=== PATIENT | male | born 1930 | race Caucasian/White ===

== ENCOUNTER 2017-09-24 07:08 | Inpatient (IN) | payer MEDICARE, OTHER ==
[~2017-09-24] VITALS: Ht 175.3 cm; Wt 75.6 kg
[2017-09-24] VITALS (8 sets, daily range): BP systolic 126–155; BP diastolic 44–67
--- NOTE | ~2017-09-24 | H ---
[address] [address] HISTORY AND PHYSICAL Name: KATIE DE SANTIAGO Room: [address] IN .R.#: [id number] Admission: 09/24/17 Attend Phys: Cosme Garcia MD, Discharge: 09/25/17 Date of : [birth year] Report #: [id number] THIS REPORT FOR: //name// Please refer to the History and Physical performed in the physician's office. By: [facility]0Medical Records Staff ODALYS /NAILA
[~2017-09-24 07:08] MED LIST: ADULT LOW DOSE81 MG PO; AZITHROMYCIN; BENTYL 20 MG TA20 M1 PO; CARAFATE 1 GM TA1 G1 PO; CARDURA4 MG PO; CLEOCIN HCL150 MG PO; ELIQUIS2.5 MG PO; FENOFIBRATE160 MG PO; FISH OIL 1,001000 M2 PO; FLOMAX0.4 MG PO; KETOCONAZOLE60 GM TP; LIPITOR 20 MG T20 M1 PO; LIPITOR10 MG PO; LISINOPRIL2.5 MG PO; LOPRESSOR 12.12.5 MG PO; MECLIZINE HCL25 M1 PO; MIRALAX255 GM PO; MOTION RELIEF25 MG PO; NEXIUM40 MG PO; NITROGLYCERIN0.4 MG SL; PLAVIX 75 MG TA75 MG PO; PRESERVISION A1 EACH PO; PROTONIX40 M2 PO; SIMVASTATIN40 MG PO; SOTALOL80 MG PO; TAMSULOSIN HCL0.4 M1 PO; TOBRADEX ST EYE5 ML OP; TOPROL XL25 MG PO; TRAMADOL 50 MG50 MG PO; ZOFRAN ODT4 MG PO; [UNRECOGNIZED DRUG - OTHER]
[2017-09-24] MEDS ORDERED: ACIPHEX 20 MG T20 MG PO (08:01)
[2017-09-24 08:21] LABS: HEMATOCRIT 36.9 % (42.0-52.0); HEMOGLOBIN 12.5 gm/dL (14.0-18.0); MCV 94.2 fL (80.0-100.0); MPV 8.2 fl. (7.2-11.1); RBC 3.92 mil/uL (4.50-6.00); RDW-CV 13.1 % (10.5-14.5); WBC 7.1 thou/uL (4.0-11.0)
[2017-09-24 08:26] LABS: ANION GAP 8 mmol/L (7-16); BUN 28 mg/dL (7-18); CALCIUM 9.2 mg/dL (8.5-10.1); CHLORIDE 105 mmol/L (98-107); CO2 27 mmol/L (21-32); CREATININE 1.5 mg/dL (0.6-1.3); GLUCOSE 104 mg/dL (70-99); POTASSIUM 4.3 mmol/L (3.5-5.1); SODIUM 140 mmol/L (136-145)
[2017-09-24 08:30] LABS: ALBUMIN 3.4 g/dL (3.4-5.0); ALKALINE PHOSPHATASE 50 U/L (46-116); APTT 28.3 Seconds (25.0-31.3); CHOLESTEROL 116 mg/dL (<200); HDL CHOLESTEROL 39 mg/dL (>40); INR 1.1; LDL CHOLESTEROL 60 mg/dL (<100); SGOT 30 U/L (15-37); SGPT 32 U/L (30-65); TOTAL BILIRUBIN 0.4 mg/dL (<0.1-1.0); TOTAL PROTEIN 6.5 g/dL (6.4-8.2); TRIGLYCERIDE 87 mg/dL (<150); VLDL 17 mg/dL (<40)
[2017-09-24 08:41] LABS: SERUM ASSESSMENT Clear
--- NOTE | 2017-09-24 13:09 | EKG ---
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
[2017-09-25] VITALS: BP 136/64
[2017-09-25 04:00] VITALS: BP 119/48; BP 181/91
[2017-09-25 04:31] LABS: HEMATOCRIT 32.6 % (42.0-52.0); HEMOGLOBIN 11.2 gm/dL (14.0-18.0); MCH 32.3 pg (26.0-34.0); MCHC 34.5 g/dL (28.0-37.0); MCV 93.5 fL (80.0-100.0); MPV 8.4 fl. (7.2-11.1); RBC 3.48 mil/uL (4.50-6.00); RDW-CV 12.8 % (10.5-14.5); WBC 10.8 thou/uL (4.0-11.0)
[2017-09-25 04:51] LABS: ALBUMIN 2.9 g/dL (3.4-5.0); ALKALINE PHOSPHATASE 46 U/L (46-116); ANION GAP 7 mmol/L (7-16); BUN 20 mg/dL (7-18); CALCIUM 8.6 mg/dL (8.5-10.1); CHLORIDE 109 mmol/L (98-107); CO2 25 mmol/L (21-32); CREATININE 1.3 mg/dL (0.6-1.3); GLUCOSE 98 mg/dL (70-99); POTASSIUM 4.3 mmol/L (3.5-5.1); SGOT 23 U/L (15-37); SGPT 24 U/L (30-65); SODIUM 141 mmol/L (136-145); TOTAL BILIRUBIN 0.6 mg/dL (<0.1-1.0); TOTAL PROTEIN 5.4 g/dL (6.4-8.2); TROPONIN-I LEVEL <0.06 ng/mL (<0.06)
[2017-09-25 08:00] VITALS: BP 137/52
[2017-09-25 09:09] VITALS: BP 137/52
--- NOTE | 2017-09-25 09:33 | EKG ---
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
--- NOTE | 2017-09-25 09:42 | EKG ---
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
[2017-09-25] MEDS ORDERED: BRILINTA90 MG PO (09:55)
[2017-09-25] MEDS ORDERED: ASPIR 8181 MG PO (09:55)
[2017-09-25] MEDS ORDERED: MELATONIN5 M1 PO (09:57)
--- NOTE | 2017-09-25 11:07 | CARD ---
[address] [address] CARDIAC CATH REPORT Name: KATIE DE SANTIAGO Room: [address]#: [id number] Admission: 09/24/17 Attend Phys: Cosme Garcia MD, Discharge: 09/25/17 Date of : [birth year] Report #: [id number] THIS REPORT FOR: //name// APPROVED REPORT Study performed: 09/24/2017 08:45:14 Patient Details Patient Status: Out-Patient Room #: The patient is a 87 year-old male Event Personnel Cosme Garcia Tin Can Laborer, Jeanie Clark RN Associate Agent Insurance Sales, Agustina Duran RN Associate Agent Insurance Sales, Riddhi Manzo, Letty Corona RN Monitor Procedures Performed Art Access - R femoral artery* , Left Heart CatheterizationDES Place w/wo Plasty Single LAD [id number] Hemostasis w/ Angioseal Indication Unstable angina Risk Factors Hypercholesterolemia, Hypertension Previous Procedures/Diagnoses Previous PCI Admission/Lab Medications/Medications given during procedure Aspirin, Platelet Aff. Inhib., Angiomax bolus and infusion Procedure Narrative The patient was brought electively to the Cardiac Catheterization Laboratory and was prepped and draped in a sterile manner. The right femoral was infiltrated with 1% Lidocaine subcutaneous anesthesia. A 6Fr [place] sheath was inserted into the right femoral artery. Coronary angiography was performed using coronary diagnostic catheters. The right coronary system was accessed and visualized with a 6Fr JR4 catheter. The left coronary system was accessed and visualized with a 6Fr JL4 catheter. The left ventricle was accessed and visualized with a 6Fr Straight PIG catheter. Left ventricular/Aortic Valve gradient assessed via catheter pullback. Left ventriculogram was performed in [place] [address] CARDIAC CATH REPORT Name: KATIE DE SANTIAGO Room: [address]#: [id number] Admission: 09/24/17 Attend Phys: Cosme Garcia MD, Discharge: 09/25/17 Date of : [birth year] Report #: [id number] femoral angiogram was performed . Closure device was deployed with a 6 Fr Angioseal STS 6Fr. The patient tolerated the procedure well and there were no complications associated with the procedure. There was no hematoma. Intraoperative Conscious Sedation Fentanyl 25 mcg Dose: 1948 mGy Contrast Type and Amount: Visipaque 380 ml Coronary Angiography The patient's coronary anatomy is left dominant. Diagnostic Cath Left Main 0% narrowing LAD 75-80% tubular proximal stenosis with 70% mid vessel in-stent narrowing Circumflex Dominant vessel with widely patent stents and 40% distal narrowing Right Coronary Small nondominant vessel with 40% mid vessel narrowing Left Ventriculography The left ventricle is normal in size with normal contractility. The left ventricular ejection fraction is estimated to be 60%. Left ventricular wall motion abnormalities are not present. There is no mitral insufficiency. Hemodynamics The aortic pressure is 165/66 mmHg with a mean of 104 mmHg. The left ventricular pressure is 165/2 mmHg with a mean of mmHg. The left ventricular end diastolic pressure is 20 mmHg. There was no gradient across the aortic valve upon pullback. PCI Technique Lesion Anticoagulation was achieved with Angiomax. Patient was preloaded with Angiomax IV 11.25 ml. Percutaneous coronary intervention was performed on the proximal left anterior descending artery segment. The lesion stenosis prior to intervention was 80% with ELLIE 3 flow. A 6FR LAUNCHER EBU 3.5 Guide Catheter was used to engage the ostium. A IG: ProwaterFlex 180CM Interventional Guidewire was used to cross the lesion. BALLOON DILATION A Balloon catheter Trek RX 2.5 X 15 [place] [address] CARDIAC CATH REPORT Name: KATIE DE SANTIAGO Room: [address]#: [id number] Admission: 09/24/17 Attend Phys: Cosme Garcia MD, Discharge: 09/25/17 Date of : [birth year] Report #: [id number] 12-16atm for 15seconds. STENT DEPLOYMENT A drug-eluting stent Xience Alpine RX 2.5X23 was inserted and inflated up to 14atm for 15seconds. POST STENT DEPLOYMENT BALLOON DILATION A Balloon catheter NC Trek RX 3.0 X 12 was inserted and inflated up to 15atm for 10seconds. Final angiography reveals 10 % stenosis with ELLIE 3 flow. PCI Technique Lesion 2 Percutaneous Coronary Intervention was performed on the mid LAD. The lesion stenosis prior to intervention was 70% with ELLIE flow. Balloon Dilation A Balloon catheter NC Trek RX 2.5 X 12 was inserted and inflated up to 14atm for 10seconds. Stent Deployment A drug-eluting stent Xience Alpine RX 2.5X12, 2.5x12 was inserted and inflated up to 12atm for 15seconds. Final angiography reveals 0 % stenosis with ELLIE 3 flow. Conclusion #1 significant coronary artery disease characterized by the following: A 80% proximal LAD stenosis with 70% mid LAD in-stent restenosis B dominant circumflex with widely patent stents and 40% distal narrowing C small nondominant right coronary artery with 40% mid vessel narrowing #2 normal left ventricular systolic function, estimated ejection fraction being 60% #3 modest systemic systolic hypertension with moderate elevation of left ventricular end-di[place] [address] CARDIAC CATH REPORT Name: KATIE DE SANTIAGO Room: [address]#: [id number] Admission: 09/24/17 Attend Phys: Cosme Garcia MD, Discharge: 09/25/17 Date of : [birth year] Report #: [id number] #4 successful percutaneous coronary intervention with deployment of a drug-eluting stent at the site of 80% proximal LAD stenosis with 10% residual narrowing and ELLIE-3 flow the distal vessel #5 successful percutaneous coronary intervention with deployment of sequential drug-eluting stents at the site of 70% tubular mid LAD in-stent restenosis with 0% residual narrowing and ELLIE-3 flow the distal vessel Recommendations Cardiac Risk Reduction Program Aggressive Medical Therapy Medications Administered Aspirin (any) Ticagrelor Diagnostic Cath Approved by: Cosme Garcia MD Date/Time: 09/25/2017 at 1104 <ELECTRONICALLY SIGNED> By: Cosme Garcia MD, [facility] 09/25/17 1106 1106 1106Cosme Garcia MD, FAC /INF
--- NOTE | 2017-09-25 11:28 | D ---
[address] [address] DISCHARGE SUMMARY Name: KATIE DE SANTIAGO Room: [address] IN M.R.#: [id number] Admission: 09/24/17 Attend Phys: Cosme Garcia MD, Discharge: 09/25/17 Date of : [birth year] Report #: [id number] THIS REPORT FOR: //name// CC: DR ZHAO Pate DATE OF SERVICE: 09/25/2017 FINAL DISCHARGE DIAGNOSES: 1. Unstable angina. 2. Coronary artery disease. 3. Status post percutaneous coronary intervention to the left anterior descending. 4. Status post remote percutaneous coronary intervention of the circumflex and left anterior descending. 5. Paroxysmal atrial fibrillation. 6. Hyperlipidemia. 7. Gastroesophageal reflux disease. PROCEDURES: 09/24/2017 -- left heart catheterization, selective coronary arteriography and percutaneous coronary intervention with deployment of two drug-eluting stents at the site of 75-80% tubular proximal LAD stenosis. The patient is a very pleasant 87-year-old male with coronary artery disease, 6 years status post stenting of the mid to distal LAD and multiple sites of the dominant circumflex. He presented to Dr. Diaz with increasing episodes of chest discomfort, strongly suggestive of angina following an unstable course. In this context and with the risk factors of hyperlipidemia, I performed cardiac catheterization on 09/24/2017, which revealed 75-80% tubular proximal LAD stenosis with widely patent mid to distal LAD stents and widely patent circumflex stents. I deployed 2 drug-eluting stents in the proximal LAD with 10% residual narrowing and ELLIE 3 flow of the distal vessel. The patient did well post-procedurally with good hemostasis at the right femoral site of catheterization. Laboratory on 09/25 revealed a sodium of 141, potassium of 4.3, BUN 20, creatinine 1.3. Hemoglobin 11.2, white blood cell count 10,800, with 224,000 platelets. Troponin less than 0.06. Cholesterol 116, triglycerides 87, HDL 30 and LDL 60 mg percent. The patient ambulated without difficulty. There was good hemostasis at the right femoral site of catheterization. He was discharged to home in stable condition on the following medications: Aspirin 81 mg daily, atorvastatin 20 mg daily, doxazosin 4 mg daily, fenofibrate 160 mg daily, AcipHex 20 mg daily, sotalol 80 mg b.i.d.. Ticagrelor or Brilinta 90 mg b.i.d., with 180 [place] [address] DISCHARGE SUMMARY Name: DE SANTIAGOKATIE Bernadette Room: [address]#: [id number] Admission: 09/24/17 Attend Phys: Cosme Garcia MD, Discharge: 09/25/17 Date of : [birth year] Report #: [id number] dose and previously utilized apixaban to be held temporarily during the rest of the confluence of Brilinta, aspirin, apixaban. The patient is scheduled to return to see our nurse practitioner, Eloisa Torrez, on 09/29/[address] Diaz on 11/11/2017. Thus, the patient is discharged to home in stable condition on the aforementioned medications with followup as iterated above. <ELECTRONICALLY SIGNED> By: Cosme Garcia MD, [facility] 09/25/17 1128 0925 1012Jokey Garcia MD, [facility] /nt
== END 2017-09-25 10:30 | disposition home or self-care (01) | DRG 246 ==
LOC: M.CL 07:08 → M.TBA-CV 11:23 → M.2W 15:10
PROVIDERS: ADMIT Internal Medicine
PROC: B211YZZ Fluoroscopy of Multiple Coronary Arteries using Other Contrast (ICD-10-PCS; principal; 2017-09-25)
PROC: 027035Z Dilation of Coronary Artery, One Artery with Two Drug-eluting Intraluminal Devices, Percutaneous Approach (ICD-10-PCS; principal; 2017-09-25)
PROC: 4A023N7 Measurement of Cardiac Sampling and Pressure, Left Heart, Percutaneous Approach (ICD-10-PCS; principal; 2017-09-25)
PROC: B215YZZ Fluoroscopy of Left Heart using Other Contrast (ICD-10-PCS; principal; 2017-09-25)
DX: T82.855A Stenosis of coronary artery stent, initial encounter (principal); I50.33 Acute on chronic diastolic (congestive) heart failure; I25.110 Atherosclerotic heart disease of native coronary artery with unstable angina pectoris; I48.92 Unspecified atrial flutter; I48.0 Paroxysmal atrial fibrillation; E78.2 Mixed hyperlipidemia; I95.1 Orthostatic hypotension; E78.5 Hyperlipidemia, unspecified; K21.9 Gastro-esophageal reflux disease without esophagitis; Z88.0 Allergy status to penicillin; Z88.2 Allergy status to sulfonamides; Z88.8 Allergy status to other drugs, medicaments and biological substances

== ENCOUNTER 2017-09-30 17:26 | Emergency (ER) | payer MEDICARE, OTHER ==
[~2017-09-30] VITALS: Ht 175.3 cm; Wt 71.7 kg
[~2017-09-30 17:26] MED LIST changes: +ACIPHEX 20 MG T20 MG PO; +ASPIR 8181 MG PO; +BRILINTA90 MG PO; +MELATONIN5 M1 PO
[2017-09-30 17:30] VITALS: BP 128/71
[2017-09-30] MEDS ORDERED: EFFIENT10 MG PO (18:54)
[2017-09-30] MEDS ORDERED: PEPCID20 MG PO (19:05)
== END 2017-09-30 19:15 | disposition home or self-care (01) ==
LOC: M.ERS 17:26
DX: R21 Rash and other nonspecific skin eruption (principal); T50.995A Adverse effect of other drugs, medicaments and biological substances, initial encounter; Y92.9 Unspecified place or not applicable; E78.5 Hyperlipidemia, unspecified; Z88.0 Allergy status to penicillin; Z88.1 Allergy status to other antibiotic agents; Z88.2 Allergy status to sulfonamides

== ENCOUNTER → 2018-05-03 | Outpatient (CLI) | payer MEDICARE, OTHER ==
[~2018-05-03] MED LIST changes: +EFFIENT10 MG PO; +PEPCID20 MG PO
== END ==
LOC: M.LAB 11:53
DX: R41.3 Other amnesia (principal); R53.83 Other fatigue; Z98.61 Coronary angioplasty status

== ENCOUNTER 2018-05-08 20:22 | Inpatient (IN) | payer MEDICARE, OTHER ==
[~2018-05-08] VITALS: Ht 172.7 cm; Wt 69.4 kg
[2018-05-08 20:35] VITALS: BP 178/71
[2018-05-08] MEDS ORDERED: OMEPRAZOLE20 M1 (20:55)
[2018-05-08 21:21] LABS: URINE BILIRUBIN NEGATIVE (Negative); URINE BLOOD NEGATIVE (Negative); URINE CLARITY CLEAR; URINE COLOR YELLOW; URINE GLUCOSE-RANDOM NEGATIVE (Negative); URINE KETONES NEGATIVE (Negative); URINE LEUKOCYTES-REFLEX NEGATIVE (Negative); URINE NITRITE-REFLEX NEGATIVE (Negative); URINE PROTEIN NEGATIVE (Negative); URINE SPECIFIC GRAVITY 1.015 (1.005-1.030); URINE UROBILINOGEN 0.2 E.U./dl (0.2-1.0)
[2018-05-08 21:21] LABS: ABSOLUTE EOSINOPHILS 0.1 thou/uL (0.0-0.7); ABSOLUTE LYMPHOCYTES 1.7 thou/uL (0.8-5.3); ABSOLUTE MONOCYTES 0.8 thou/uL (0.0-1.2); ABSOLUTE NEUTROPHILS 5.3 thou/uL (1.6-8.1); BASOPHILS 0.6 %; EOSINOPHILS 1.8 %; HEMATOCRIT 36.5 % (42.0-52.0); HEMOGLOBIN 12.5 gm/dL (14.0-18.0); LYMPHOCYTES 21.1 %; MCH 32.1 pg (26.0-34.0); MCHC 34.4 g/dL (28.0-37.0); MCV 93.4 fL (80.0-100.0); MONOCYTES 10.3 %; MPV 7.9 fl. (7.2-11.1); NUCLEATED RBCS 0 /100WBC; PLATELET COUNT* 257 thou/uL (150-400); POLYS 66.2 %; RDW-CV 12.7 % (10.5-14.5)
[2018-05-08 21:30] LABS: APTT 28.2 Seconds (25.0-31.3); INR 1.1; PROTIME 10.9 Seconds (9.20-11.50)
[2018-05-08 21:34] LABS: ANION GAP 6 mmol/L (7-16); BUN 27 mg/dL (7-18); CALCIUM 9.3 mg/dL (8.5-10.1); CHLORIDE 104 mmol/L (98-107); CO2 28 mmol/L (21-32); CREATININE 1.5 mg/dL (0.6-1.3); GLUCOSE 107 mg/dL (70-99); POTASSIUM 4.5 mmol/L (3.5-5.1); SODIUM 138 mmol/L (136-145)
[2018-05-08 21:39] LABS: ALBUMIN 3.5 g/dL (3.4-5.0); ALKALINE PHOSPHATASE 58 U/L (46-116); LIPASE 220 U/L (73-393); NT-PRO BRAIN NAT PEPTIDE 314 pg/mL (<300); SGOT 31 U/L (15-37); SGPT 27 U/L (30-65); TOTAL BILIRUBIN 0.4 mg/dL (<0.1-1.0); TROPONIN-I LEVEL <0.06 ng/mL (<0.06)
[2018-05-08 23:29] VITALS: BP 147/82
--- NOTE | 2018-05-09 03:12 | NUR ---
RECEIVED REPORT AND ASSUMED CARE AT 0010, PT TRANSPORTED FROM ED TO ROOM 230. VSS. CARDIAC MONITORING IN PLACE. ASSESSMENT COMPLETED CHARTED. PT ORIENTATED TO ROOM, CALL LIGHT, FALL POLICY.DISCUSSED PLAN OF CARE WITH PT, VERBALIZED UNDERSTANDING. ADMISSION COMPLETED BY NURSING. PT UP SBA TO BATHROOM, ON RA. BED LOCKED IN LOWEST POSITION, CALL LIGHT WITHIN REACH, BED ALARM ON. WILL CONTINUE TO MONITOR
[2018-05-09 04:00] VITALS: BP 117/56
--- NOTE | 2018-05-09 07:15 | NUR ---
CHANGE OF SHIFT BEDSIDE REPORT GIVEN PATIENT SEEN AT BEDSIDE, IN BED RESTING ASSUMED PATIENT CARE
[2018-05-09 08:00] VITALS: BP 116/61
[2018-05-09 12:00] VITALS: BP 136/60
--- NOTE | 2018-05-09 12:54 | NUR ---
MET WITH PT, AND SON/KIMBERLY TO DISCUSS HOME SITUATION/DC PLANNING. PT LIVES WITH . HE IS NORMALLY INDEPENDENT AND ACTIVE. USES NO EQUIPMENT AND HASN'T HAD HH. 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 STATED PT WAS ABLE TO CALL HER FOR HELP BUT NOW IS HAVING SOME PERIODS OF 'FORGETFULNESS.' PLAN IS FOR PT TO RETURN HOME AT DC. WILL FOLLOW
--- NOTE | 2018-05-09 15:37 | EKG ---
[place] [address] ELECTROCARDIOGRAM REPORT Name: KATIE DE SANTIAGO Room: [address] ADM IN M.R.#: [id number] Admission: 05/08/18 Attend Phys: Abel Ortiz MD Discharge: Date of : [birth year] Report #: [id number] THIS REPORT FOR: //name// [facility] ED Test Date: 2018-05-08 Test Time: 20:35:13 Pat Name: KATIE DE SANTIAGO Department: Room: [facility] Gender: M Interventional Physiatrist: AP : 1930 Requested By: Rosemary Story Order Number: [id number] MD: Nacho Clement Measurements Intervals [place] Rate: 61 P: 53 [place]: 149 QRS: 28 QRSD: 96 T: 41 QT: 428 QTc: 431 Interpretive Statements Sinus rhythm Compared to ECG 09/25/2017 07:45:49 No significant changes Electronically Signed On 05-09-2018 15:37:46 ELECTRONIC WARFARE LINGUIST by Nacho Clement [email or web address] <ELECTRONICALLY SIGNED> By: Nacho Clement MD, [facility] 05/09/18 1537 34 34 Nacho Clement MD, FACC /EPI
--- NOTE | 2018-05-09 15:52 | EKG ---
[place] [address] ELECTROCARDIOGRAM REPORT Name: KATIE DE SANTIAGO Room: [address] ADM IN M.R.#: [id number] Admission: 05/08/18 Attend Phys: Abel Ortiz MD Discharge: Date of : [birth year] Report #: [id number] THIS REPORT FOR: //name// [facility] Test Date: 2018-05-09 Test Time: 12:28:46 Pat Name: KATIE DE SANTIAGO Department: Room: [address] Gender: M Physical Therapist Clinic Director: : 1930 Requested By: Bo Tse Order Number: [id number] Xiao MD: Nacho Clement Measurements Intervals [place] Rate: 60 P: 54 GA: 171 QRS: 22 QRSD: 93 T: 42 QT: 446 QTc: 446 Interpretive Statements Sinus rhythm Compared to ECG 09/25/2017 07:45:49 No significant changes Electronically Signed On 05-09-2018 15:52:24 STERILE SUPPLY TECHNICIAN by Nacho Clement [email or web address] <ELECTRONICALLY SIGNED> By: Nacho Clement MD, [facility] 05/09/18 1552 1228 1228 Nacho lCement MD, FACC /EPI
[2018-05-09 16:17] VITALS: BP 115/63
[2018-05-09 19:50] VITALS: BP 118/56
--- NOTE | 2018-05-09 22:55 | NUR ---
RECEIVED REPORT AND ASSUMED CARE AT 1900. VSS. CARDIAC MONITORING I PLACE. NO COMPLAINTS OF PAIN. ASSESSMENT COMPLETED CHARTED. DISCUSSED PLAN OF CARE WITH PT AND . VRBALIZED UNDERSTANDING. MEDICATION ADMIN PER EMAR. PT UP WITH ASSIST WITH WALKER TO BATHROOM. RA. BED LOCKED IN LOWEST POSITION, CALL LIGHT WITHIN REACH, BED ALARM ON . WILL CONTINUE TO MONITOR FOR REMAINDER OF THE SHIFT
[2018-05-10] VITALS: BP 115/55
[2018-05-10 04:00] VITALS: BP 121/52
--- NOTE | 2018-05-10 07:25 | NUR ---
CHANGE OF SHIFT, BEDSIDE REPORT GIVEN PATIENT SEEN AT BEDSIDE, IN BED ASLEEP ASSUMED PATIENT CARE
[2018-05-10 08:00] VITALS: BP 111/59
[2018-05-10 11:23] VITALS: BP 113/54
--- NOTE | 2018-05-10 14:42 | CON ---
[address] [address] CONSULTATION Name: KATIE DE SANTIAGO Room: [address] IN M.R.#: [id number] Admission: 05/08/18 Attend Phys: Abel Ortiz MD Discharge: Date of : [birth year] Report #: [id number] THIS REPORT FOR: //name// CC: Abel Pate INDICATION: Chest pain and fall. HISTORY OF PRESENT ILLNESS: The patient is a very pleasant gentleman well known to myself. He has a history of coronary artery disease with percutaneous coronary intervention to the circumflex and LAD in 2011. In 2018, he had a drug-eluting stent placed to the LAD. By noninvasive studies, he has normal left ventricular systolic function. The patient was in his usual state of health yesterday, working in his barn when he tripped and fell striking his forehead. Since that time, he has had rather significant neck pain. CT of the C-spine showed no evidence of fracture or dislocation. CT of the head showed no acute abnormality. He has some midsternal chest discomfort which he describes as being worse if he does not eat. He was n.p.o. for most of the day today. The pain is resolved with eating. His troponins are unremarkable. His EKG shows no acute ST or T-wave abnormalities. He is without other complaint at this time from a cardiac standpoint. PAST MEDICAL HISTORY: 1. Coronary artery disease with percutaneous coronary intervention as outlined above in 2012 and 2018. 2. GERD. 3. Dyslipidemia. 4. Paroxysmal atrial fibrillation/flutter. 5. Benign prostatic hypertrophy. FAMILY HISTORY: Noncontributory. SOCIAL HISTORY: The patient is a lifelong nonsmoker. He does not drink alcohol. 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 He is and lives with his . ALLERGIES: PENICILLIN. HOME MEDICATIONS: Atorvastatin 20 mg daily, Cardura 4 mg daily, fenofibrate 160 mg daily, omeprazole 20 mg daily, Effient 10 mg daily, sotalol 80 mg b.i.d. PHYSICAL EXAMINATION: VITAL SIGNS: Stable. Blood pressure 115/63, pulse 67 and regular. GENERAL: This is a pleasant elderly gentleman whose only distress is of ongoing neck pain. He denies ongoing chest pain. He is not having shortness of breath. HEENT: Head is normocephalic, atraumatic. There is slight bruising on his forehead. Extraocular muscles intact. [place] [address] CONSULTATION Name: KATIE DE SANTIAGO Room: [address] IN ..#: [id number] Admission: 05/08/18 Attend Phys: Abel Ortiz MD Discharge: Date of : [birth year] Report #: [id number] NECK: Shows no jugular venous distention. There are no carotid bruits. CHEST: Reveals clear lung weiner without wheezes or rales. CARDIAC: Reveals a regular rhythm with normal S1 and S2. I do not appreciate gallop or murmur. ABDOMEN: Reveals normal bowel sounds. The abdomen is soft and nontender. EXTREMITIES: Shows no clubbing, cyanosis or edema. LABORATORY DATA: Reviewed. Sodium 138, potassium 4.5, chloride 104, bicarbonate 28, BUN 27, creatinine 1.5, serum glucose 107. LFTs within normal limits. Troponin less than 0.06 on 2 separate occasions. White blood cell count 8.0, hemoglobin 12.5, platelet count 257,000. IMPRESSION AND PLAN: 1. Atypical chest pain. This is likely not cardiac in origin. The patient has deferred stress testing at this time. Continue medical management. 2. Paroxysmal atrial fibrillation. He is maintaining sinus rhythm on sotalol. Would continue as outlined above. 3. Mechanical fall. I do not believe any syncope was involved. No further cardiac monitoring necessary. 4. Gastroesophageal reflux disease. The patient's symptoms, stable. 5. Dyslipidemia. Continue atorvastatin at current dose and fenofibrate at current dose. At this point in time, the patient appears stable from a cardiac standpoint. We will follow as needed. <ELECTRONICALLY SIGNED> By: Mikey Diaz MD, FACC 05/10/18 1442 1640 12Mikey Diaz MD, FACC /nt
[2018-05-10 15:45] VITALS: BP 113/48
[2018-05-10 19:46] VITALS: BP 114/71
[2018-05-11] VITALS: BP 108/57
[2018-05-11 04:00] VITALS: BP 102/44
--- NOTE | 2018-05-11 07:03 | NUR ---
RECEIVED REPORT AND ASSUMED CARE AT 1900. VSS. CARDIAC MONITORING IN PLACE. PT DENIES COMPLAINTS OF PAIN. ASSESSMENT COMPLETED CHARTED. PT UP WITH SBA WITH WALKER. MEDICATION ADMIN PER EMAR. HOURLY ROUNDING COMPLETED AND ALL NEEDS MET. NURSING WILL CONTINUE TO MONITOR
--- NOTE | 2018-05-11 07:25 | NUR ---
CHANGE OF SHIFT, BEDSIDE REPORT GIVEN PATIENT SEEN AT BEDSIDE, IN BED RESTING ASSUMED PATIENT CARE
[2018-05-11 08:00] VITALS: BP 139/55
[2018-05-11 12:00] VITALS: BP 111/61
[2018-05-11] MEDS ORDERED: FLEXERIL PO (12:46)
[2018-05-11] MEDS ORDERED: OMEPRAZOLE40 MG PO (12:48)
[2018-05-11 13:58] VITALS: BP 139/55
--- NOTE | 2018-05-11 15:25 | NUR ---
DISCHARGE TO HOME ALL DC INSTRUCTIONS GIVEN, ACKNOWLEDGED, SIGNED COPIES GIVEN IV AND HEART MONITOR REMOVED PERSONAL BELONGINGS RETURNED ASSISTED OUT VIA WC GOOD CONDITION TO WAITING CAR
== END 2018-05-11 13:30 | disposition home or self-care (01) | DRG 392 ==
LOC: M.ERS 20:22 → M.TBA-ER 22:34 → M.2W 22:34
PROVIDERS: Personal Emergency Response Attendant
DX: K21.9 Gastro-esophageal reflux disease without esophagitis (principal); K22.4 Dyskinesia of esophagus; M25.512 Pain in left shoulder; S19.9XXA Unspecified injury of neck, initial encounter; W19.XXXA Unspecified fall, initial encounter; I25.10 Atherosclerotic heart disease of native coronary artery without angina pectoris; I48.0 Paroxysmal atrial fibrillation; E78.5 Hyperlipidemia, unspecified; N18.3 Chronic kidney disease, stage 3 (moderate); S09.90XA Unspecified injury of head, initial encounter; N40.0 Benign prostatic hyperplasia without lower urinary tract symptoms; Z79.82 Long term (current) use of aspirin; Z79.899 Other long term (current) drug therapy; Y93.89 Activity, other specified; Y92.89 Other specified places as the place of occurrence of the external cause; Z95.5 Presence of coronary angioplasty implant and graft; Y99.8 Other external cause status; Z88.0 Allergy status to penicillin; Z88.2 Allergy status to sulfonamides; Z88.6 Allergy status to analgesic agent; I25.2 Old myocardial infarction; Z86.73 Personal history of transient ischemic attack (TIA), and cerebral infarction without residual deficits

== ENCOUNTER → 2018-05-16 | Outpatient (CLI) | payer MEDICARE, OTHER ==
[~2018-05-16] MED LIST changes: +FLEXERIL PO; +OMEPRAZOLE20 M1; +OMEPRAZOLE40 MG PO
--- NOTE | ~2018-05-16 | EEG ---
[address] [address] EEG STUDY REPORT Name: KATIE DE SANTIAGO [id number] Admission: 05/16/18 Attend Phys: Umang Magallon MD Discharge: Date of : [birth year] Report #: [id number] THIS REPORT FOR: //name// CC: Umang Mariecraigadonay DATE OF SERVICE: 05/16/2018 This patient is being evaluated for memory disturbances. EEG was done by placing the electrode by standard 10-20 system of electrode placement. Both referential and sequential montages were used for recording. Background activity in this patient's EEG is about 8 Hz and 30 microvolt. The patient went to sleep that was associated with bilaterally symmetrical sleep spindle and vertex sharp waves. Photic stimulation was unremarkable. Throughout the record, no active epileptiform activity was noticed. IMPRESSION: This patient's EEG is intermixed with some theta range slowing on both sides, that is a nonspecific abnormality, which can occur with dementia, encephalopathy, effect of psychotropic medication, drowsiness, etc. Clinical correlation is recommended. By: [id number] Magallon MD /nt
== END ==
LOC: M.MRI 05-03 12:44 → M.CRD 12:48 → M.MRI 14:30
DX: G31.89 Other specified degenerative diseases of nervous system (principal); R41.3 Other amnesia; R53.83 Other fatigue; Z98.61 Coronary angioplasty status

== ENCOUNTER → 2018-06-02 | Outpatient (CLI) | payer MEDICARE, OTHER | LOC: M.ULTRA 07:44 | DX: K82.8 Other specified diseases of gallbladder (principal); R11.0 Nausea ==

== ENCOUNTER 2019-02-23 12:23 | Observation (INO) | payer MEDICARE, OTHER ==
[~2019-02-23] VITALS: Ht 175.3 cm; Wt 68.0 kg
[2019-02-23] VITALS (8 sets, daily range): BP systolic 110–163; BP diastolic 55–85
--- NOTE | ~2019-02-23 | H ---
[address] [address] HISTORY AND PHYSICAL Name: KATIE DE SANTIAGO Room: [address] [place] Marie#: [id number] Admission: 02/23/19 Attend Phys: Mikey Diaz MD Discharge: 02/24/19 Date of : [birth year] Report #: [id number] THIS REPORT FOR: //name// Please refer to the History and Physical performed in the physician's office. By: 0649Medical Records Staff MINERVA /NAILA
[2019-02-23 13:45] LABS: HEMATOCRIT 38.7 % (42.0-52.0); HEMOGLOBIN 13.8 gm/dL (14.0-18.0); MCH 33.1 pg (26.0-34.0); MCHC 35.7 g/dL (28.0-37.0); MCV 92.7 fL (80.0-100.0); MPV 8.3 fl. (7.2-11.1); RBC 4.18 mil/uL (4.50-6.00); WBC 8.9 thou/uL (4.0-11.0)
[2019-02-23 13:55] LABS: APTT 26.3 Seconds (25.0-31.3); PROTIME 10.4 Seconds (9.20-11.50)
[2019-02-23 13:56] LABS: ANION GAP 9 mmol/L (7-16); BUN 26 mg/dL (7-18); CALCIUM 9.4 mg/dL (8.5-10.1); CHLORIDE 104 mmol/L (98-107); CO2 27 mmol/L (21-32); CREATININE 1.1 mg/dL (0.6-1.3); GLUCOSE 98 mg/dL (70-99); POTASSIUM 4.4 mmol/L (3.5-5.1); SODIUM 140 mmol/L (136-145)
[2019-02-23 14:00] LABS: ALBUMIN 3.6 g/dL (3.4-5.0); ALKALINE PHOSPHATASE 99 U/L (46-116); CHOLESTEROL 144 mg/dL (<200); HDL CHOLESTEROL 40 mg/dL (>40); LDL CHOLESTEROL 48 mg/dL (<100); SGOT 22 U/L (15-37); SGPT 26 U/L (30-65); TC:HDL 3.6 Ratio (Not establshd); TOTAL BILIRUBIN 0.2 mg/dL (<0.1-1.0); TRIGLYCERIDE 283 mg/dL (<150); VLDL 57 mg/dL (<40)
[2019-02-23 14:01] LABS: SERUM ASSESSMENT Clear
--- NOTE | 2019-02-23 14:01 | EKG ---
[place] [address] ELECTROCARDIOGRAM REPORT Name: DE SANTIAGOKATIE PRESAUDALIRIO Room: [facility].#: [id number] Admission: 02/23/19 Attend Phys: Mikey Diaz MD Discharge: Date of : [birth year] Report #: [id number] THIS REPORT FOR: //name// [facility] Test Date: 2019-02-23 Test Time: 13:31:08 Pat Name: KATIE DE SANTIAGO Department: Room: Gender: M Insurance Solicitor: : 1930 Requested By: Mikey Diaz Order Number: [id number] Reading MD: Mikey Diaz Measurements Intervals [place] Rate: 64 P: -2 [place]: 145 QRS: 23 QRSD: 90 T: 32 QT: 426 QTc: 440 Interpretive Statements Sinus rhythm Compared to ECG 05/09/2018 12:28:46 No significant changes Electronically Signed On 02-23-2019 14:01:01 TRAFFIC PERSONNEL SUPERVISOR by Mikey Diaz [email or web address] <ELECTRONICALLY SIGNED> By: Mikey Diaz MD, [facility] 02/23/19 1401 1331 1331 Mikey Diaz MD, FACC /EPI
--- NOTE | 2019-02-23 18:15 | NUR ---
POST CATH PATIENT TO 200 PATIENT TO VIA BED TELEPHONE REPORT GIVEN PRIOR TO ARRIVAL PATIENT ORIENTED TO AND CALL LIGHT PATIENT DENIES PAIN R GROIN SITE C/D/I
[2019-02-24] VITALS: BP 117/63
[2019-02-24 04:32] LABS: HEMATOCRIT 38.1 % (42.0-52.0); HEMOGLOBIN 13.2 gm/dL (14.0-18.0); MCH 32.2 pg (26.0-34.0); MCHC 34.6 g/dL (28.0-37.0); MPV 8.2 fl. (7.2-11.1); RBC 4.09 mil/uL (4.50-6.00); WBC 10.3 thou/uL (4.0-11.0)
[2019-02-24 04:42] LABS: ALBUMIN 3.1 g/dL (3.4-5.0); CALCIUM 8.8 mg/dL (8.5-10.1); POTASSIUM 4.2 mmol/L (3.5-5.1); TOTAL BILIRUBIN 0.4 mg/dL (<0.1-1.0); TOTAL PROTEIN 6.3 g/dL (6.4-8.2)
[2019-02-24 05:17] VITALS: BP 126/63
--- NOTE | 2019-02-24 06:26 | NUR ---
PATIENT PROGRESSING TOWARDS GOALS: RIGHT FEMORAL CATH SITE REMAINS C/D/I. TENDER TO TOUCH BUT NO HEMATOMA OR BLEEDING NOTED. PATIENT ABLE TO AMBULATE WITH STANDBY ASSIST AFTER BEDREST ENDED WITH NO COMPLICATIONS. ANTICIPATING DISCHARGE HOME TODAY. CALL LIGHT WITHIN REACH
[2019-02-24 07:00] VITALS: BP 104/54; BP 116/65
--- NOTE | 2019-02-24 09:08 | NUR ---
INITAL ASSESSMENT COMPLETED CHARTED. VSS. TRACING NSR ON MONITOR. PT DENIES PAIN, SOA, N/V/D. PT UP AD HEATHER WITH STEADY GAIT.NO NEW CONCERNS AT THIS TIME. HOURLY ROUNDING IN PLACE FOR PT SAFETY. CLWR.
[2019-02-24 10:17] VITALS: BP 104/54
[2019-02-24] MEDS ORDERED: ASA81BEC PO (11:00)
[2019-02-24 11:41] VITALS: BP 118/55
--- NOTE | 2019-02-24 15:50 | EKG ---
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 02/24/19 1549 2 2 Cosme Garcia MD, FACC /EPI
--- NOTE | 2019-02-25 10:29 | CARD ---
[address] [address] CARDIAC CATH REPORT Name: KATIE DE SANTAIGO Room: [address] Jack Marie#: [id number] Admission: 02/23/19 Attend Phys: Mikey Diaz MD Discharge: 02/24/19 Date of : [birth year] Report #: [id number] THIS REPORT FOR: //name// APPROVED REPORT Study performed: 02/23/2019 16:12:32 Patient Details Patient Status: Out-Patient Room #: The patient is a 88 year-old male Event Personnel Mikey Diaz Personal Service Workers, Suzan Pedro RTR Scrub, Mariola Torres RN RN, Joelle Camejo RTR Monitor, Markus De Leonub, Suzan Pedro RTR Monitor, Cosme Garcia Security Messenger Procedures Performed Art Access - R femoral artery Left Heart Cath w/or w/o Coronaries C AIDE Place w/wo Plasty Single LAD Hemostasis w/ Angioseal Indication Unstable angina Risk Factors Hypercholesterolemia, Hypertension Admission/Lab Medications/Medications given during procedure Angiomax bolus and infusion Procedure Narrative The patient was brought electively to the Cardiac Catheterization Laboratory and was prepped and draped in a sterile manner. The right femoral was infiltrated with 2% Lidocaine subcutaneous anesthesia. A 6fr Ultimum Sheath sheath was inserted into the right femoral artery. Coronary angiography was performed using coronary diagnostic catheters. The right coronary system was accessed and visualized with a JR 4 6F catheter. The left coronary system was accessed and visualized with a JL 4 6F catheter. The left ventricle was accessed and visualized with a PIG 6F catheter. Left ventricular/Aortic Valve gradient assessed via catheter pullback. Closure device was deployed with a 6 Fr Angioseal STS 6Fr. The patient tolerated the procedure well and there were no complications associated with the procedure. [place] [address] CARDIAC CATH REPORT Name: KATIE DE SANTIAGO Room: [address] Jack Marie#: [id number] Admission: 02/23/19 Attend Phys: Mikey Diaz MD Discharge: 02/24/19 Date of : [birth year] Report #: [id number] Intraoperative Conscious Sedation Sedation start time: 1647 Case end Time: 1738 Fentanyl 25 mcg Versed 1 mg Fluoro Time: 7.9 minutes Dose: DAP 39021 cGycm2 1243 mGy Contrast Type and Amount: Visipaque 245 ml Coronary Angiography The patient's coronary anatomy is left dominant. Diagnostic Cath Left Main 0% narrowing LAD 90% focal mid LAD in-stent restenosis with 40% distal LAD narrowing Circumflex 30% narrowing of the proximal portion of the prominent second marginal branch of the dominant circumflex Right Coronary 30% narrowing of the proximal portion of the small nondominant right coronary artery Left Ventriculography Left Ventriculography was not performed. Hemodynamics The aortic pressure is 145/52 mmHg with a mean of 66 mmHg. The left ventricular pressure is 150/2 mmHg with a mean of mmHg. The left ventricular end diastolic pressure is 17 mmHg. PCI Technique Lesion Anticoagulation was achieved with Angiomax. Patient was preloaded with Angiomax. Percutaneous coronary intervention was performed on the mid left anterior descending artery segment. The lesion stenosis prior to intervention was 90% with ELLIE 3 flow. A 6FR LAUNCHER EBU 3.5 Guide Catheter was used to engage the Left ostium. A IG: BMW 190cm Interventional Guidewire was used to cross the lesion. BALLOON DILATION A Balloon catheter NC Trek RX 2.5 X 12 was inserted and inflated up to 15.00atm for 10seconds. STENT DEPLOYMENT A drug-eluting stent Biotronik Orsiro 2.5 x12 was inserted and inflated up to 10atm for 6seconds. Additional Inflation: 12atm for 5seconds. [place] [address] CARDIAC CATH REPORT Name: KATIE DE SANTIAGO Room: [address]#: [id number] Admission: 02/23/19 Attend Phys: Mikey Diaz MD Discharge: 02/24/19 Date of : [birth year] Report #: [id number] POST STENT DEPLOYMENT BALLOON DILATION A Balloon catheter NC Trek RX 2.5 X 8 was inserted and inflated up to 18.00atm for 9seconds. Additional Inflation: 20.00atm for 9seconds. Additional Inflation: 22.00atm for 8seconds. Final angiography reveals 10 % stenosis with ELLIE 3 flow. Conclusion #1 significant coronary artery disease characterized by the following: A 90% focal mid LAD in-stent restenosis with 40% distal LAD narrowing B 30% narrowing of the proximal portion of the prominent second marginal branch of the dominant circumflex C small nondominant right coronary artery with 30% proximal narrowing #2 modest elevation of left ventricular end-diastolic pressure at rest #3 successful percutaneous coronary intervention with deployment of drug-eluting stent at site of 90% mid LAD in-stent restenosis with 10% residual narrowing and ELLIE-3 flow the distal vessel Recommendations Cardiac Risk Reduction Program Aggressive Medical Therapy Medications Administered Aspirin (any) Prasugrel Diagnostic Cath Approved by: Mikey Diaz MD Date/Time: 02/25/2019 10:28:35 <ELECTRONICALLY SIGNED> By: Cosme Garcia MD, FACC 02/25/19 1029 1029 1029Cosme Garcia MD, FAC /INF
--- NOTE | 2019-02-28 09:45 | D ---
[facility] [address] [place] [address] DISCHARGE SUMMARY Name: KATIE DE SANTIAGO Room: [address] Jack Marie#: [id number] Admission: 02/23/19 Attend Phys: Mikey Diaz MD Discharge: 02/24/19 Date of : [birth year] Report #: [id number] THIS REPORT FOR: //name// CC: Mikey Pate DO INDICATION: Chest pain consistent with unstable angina. DISCHARGE DIAGNOSES: 1. Coronary artery disease. 2. Paroxysmal atrial flutter. 3. Orthostatic hypotension. 4. Mixed hyperlipidemia. 5. Gastroesophageal reflux disease. PROCEDURES DURING THE HOSPITALIZATION: 1. Left heart catheterization. 2. Percutaneous coronary intervention with drug-eluting stent placement to the mid-LAD. s DISCHARGE MEDICATIONS: Effient 10 mg daily, aspirin 81 mg daily, Lipitor 20 mg daily, Cardura 1 mg nightly, omeprazole 20 mg daily, Effient 10 mg daily, sotalol 80 mg b.i.d. DISPOSITION: The patient is to follow up with Cardiology in 1 month and 3 months. HOSPITAL COURSE: The patient was seen in the catheterization lab. He had coronary angiography as outlined above. He was found to have a high-grade mid LAD stenosis within a stented region. He underwent a subsequent drug-eluting stent placement without complication. The patient is being discharged to home in stable condition. <ELECTRONICALLY SIGNED> By: Mikey Diaz MD, [facility] 02/28/19 0945 1105 1131[facility] Centerjeremie Diaz MD, CINTHYA /nt
== END 2019-02-24 12:25 | disposition home or self-care (01) ==
LOC: M.CL 12:23 → M.TBA-ER 18:08 → M.2W 19:02
PROVIDERS: ADMIT Internal Medicine Cardiovascular Disease
DX: I25.110 Atherosclerotic heart disease of native coronary artery with unstable angina pectoris (principal); I48.92 Unspecified atrial flutter; I95.1 Orthostatic hypotension; E78.2 Mixed hyperlipidemia; K21.9 Gastro-esophageal reflux disease without esophagitis; I10 Essential (primary) hypertension; Z88.0 Allergy status to penicillin; Z88.2 Allergy status to sulfonamides; Z88.8 Allergy status to other drugs, medicaments and biological substances

== ENCOUNTER → 2019-06-06 | Outpatient (CLI) | payer MEDICARE, OTHER ==
[~2019-06-06] MED LIST changes: +ASA81BEC PO
--- NOTE | 2019-06-06 11:34 | 2DMMODE ---
[place] [address] 2 D/M-MODE ECHOCARDIOGRAM Name: KATIE DE SANTIAGO Room: [facility]#: [id number] Admission: 06/06/19 Attend Phys: Mikey Diaz, Discharge: Date of : [birth year] Date of Service: 06/06/19 1133 Report #: [id number] THIS REPORT FOR: cc: Brian Pate Steve T. DO Liston, Michael J. MD [facility] ~ APPROVED REPORT Study performed: 06/06/2019 10:00:09 EXAM: Comprehensive 2D, Doppler, and color-flow Echocardiogram Patient Location: Out-Patient BSA: 1.87 HR: 61 bpm BP: 115/60 mmHg Other Information Study Quality: Good Indications CAD 2D Dimensions IVSd: 9.91 (7-11mm) LVOT Diam: 20.03 (18-24mm) LVDd: 40.58 mm PWd: 10.45 (7-11mm) Ascending Ao: 34.87 (22-36mm) LVDs: 22.40 (25-40mm) Aortic Root: 28.62 mm Volumes Left Atrial Volume (Systole) LA ESV Index: 14.10 mL/m2 Aortic Valve AoV Peak Case.: 1.67 m/s AO Peak Gr.: 11.13 mmHg LVOT Max P.12 mmHg AO Mean Gr.: 6.30 mmHg LVOT Mean P.63 mmHg LVOT Max V: 1.01 m/s AO V2 VTI: 36.36 cm LVOT Mean V: 0.56 m/s GAMALIEL (VTI): 1.90 cm2 LVOT V1 VTI: 21.90 cm Mitral Valve E/A Ratio: 0.61 [place] [address] 2 D/M-MODE ECHOCARDIOGRAM Name: KATIE DE SANTIAGO Room: [facility] Cynthia#: [id number] Admission: 06/06/19 Attend Phys: Mikey Diaz, Discharge: Date of : [birth year] Date of Service: 06/06/19 1133 Report #: [id number] MV Decel. Time: 319.08 ms MV E Max Case.: 0.57 m/s MV PHT: 92.53 ms MVA (PHT): 2.38 cm2 TDI E/Lateral E': 11.40 E/Medial E': 7.13 Medial E' Case.: 0.08 m/s Lateral E' Case.: 0.05 m/s Pulmonary Valve PV Peak Case.: 0.78 m/s PV Peak Gr.: 2.45 mmHg Tricuspid Valve RAP Estimate: 5.00 mmHg TR Peak Gr.: 21.57 mmHg RVSP: 26.57 mmHg PA Pressure: 26.57 mmHg Left Ventricle The left ventricle is normal size. There is normal LV segmental wall motion. There is normal left ventricular wall thickness. Left ventricular systolic function is normal. LVEF is 55-60%. Grade I - abnormal relaxation pattern. Right Ventricle The right ventricle is normal size. The right ventricular systolic function is normal. Atria The left atrium size is normal. The right atrium size is normal. Aortic Valve Aortic valve is calcified. No aortic regurgitation is present. There is no aortic valvular stenosis. Mitral Valve Mild mitral annular calcification. Mild mitral regurgitation. No evidence of mitral valve stenosis. Tricuspid Valve The tricuspid valve is normal in structure. Mild tricuspid regurgitation. No pulmonary hypertension. Pulmonic Valve The pulmonary valve is normal in structure. [place] [address] 2 D/M-MODE ECHOCARDIOGRAM Name: KATIE DE SANTIAGO Room: [facility]#: [id number] Admission: 06/06/19 Attend Phys: Mikey Diaz, Discharge: Date of : [birth year] Date of Service: 06/06/19 1133 Report #: [id number] valvular regurgitation. Great Vessels The aortic root is normal in size. IVC is normal in size and collapses >50% with inspiration. Pericardium There is no pericardial effusion. <Conclusion> The left ventricle is normal size. There is normal left ventricular wall thickness. Left ventricular systolic function is normal. LVEF is 55-60%. Grade I - abnormal relaxation pattern. Aortic valve is calcified. There is no aortic valvular stenosis. Mild mitral annular calcification. Mild mitral regurgitation. Mild tricuspid regurgitation. No pulmonary hypertension. IVC is normal in size and collapses >50% with inspiration. <ELECTRONICALLY SIGNED> By: Mikey Diaz MD, FACC 06/06/19 1133 1133 1133 Mikey Diaz MD, FACC /INF
== END ==
LOC: M.CRD 09:55
DX: I08.3 Combined rheumatic disorders of mitral, aortic and tricuspid valves (principal)